=== PATIENT | male | born 1975 | race Caucasian/White ===

== ENCOUNTER 2018-07-02 19:08 | Emergency (ER) | payer OTHER ==
--- NOTE | 2018-07-02 20:49 | ER Document Report ---
ED Medical Screen (RME) - General Chief Complaint: Suicidal Ideation Stated Complaint: PSYCH PROBLEM Time Seen by Provider: 07/02/18 20:17 Notes: 43-year-old male to the emergency department chief complaint of suicidal ideation and major depression. Patient was admitted when he was 18 years of age after a suicide attempt by pills. He survived. Was placed on Effexor. [place] better finish the prescription and never was seen again. He has struggled with depression for the better of last 22 years. Patient is . Has 2 children. A few weeks ago he was in [place] where he had a major depressive episode. States that he walked around and was looking for a place to jump off a bridge or walk in front of a car. His has been concerned about him. Today he began to have severe suicidal ideation and have thoughts of wanting to harm himself. Was brought here for further evaluation. When asked what his plan of action was today he states that he had several plans but did not want to talk about them at this time. Did have trauma as a child but did not want to talk about it today. I have greeted and performed a rapid initial assessment of this patient. A comprehensive ED assessment and evaluation of the patient, analysis of test results and completion of the medical decision making process will be conducted by additional ED providers. TRAVEL OUTSIDE OF THE [place] IN LAST 30 DAYS: No - Related Data Allergies/Adverse Reactions: No Known Allergies Allergy (Unverified 07/02/18 19:12) Past Medical History - Social History Frequency of alcohol use: None Drug Abuse: None Renal/ Medical History: Denies: Hx Peritoneal Dialysis Psychiatric Medical History: Reports: Hx Depression Physical Exam - Vital signs Vitals: Temp Pulse Resp BP Pulse Ox 99.2 F 112 H 16 154/112 H 94 07/02/18 19:30 07/02/18 19:30 07/02/18 19:30 07/02/18 19:30 07/02/18 19:30 Course - Vital Signs Vital signs: Temp Pulse Resp BP Pulse Ox 99.2 F 112 H 16 154/112 H 94 07/02/18 19:30 07/02/18 19:30 07/02/18 19:30 07/02/18 19:30 07/02/18 19:30
--- NOTE | 2018-07-02 21:37 | ER Document Report ---
ED Psych Disorder / Suicide - General Chief Complaint: Suicidal Ideation Stated Complaint: PSYCH PROBLEM Time Seen by Provider: 07/02/18 21:37 Primary Care Provider: SHARATH BENTON DO [Primary Care Provider] - Follow up as needed Mode of Arrival: Ambulatory Information source: Patient Notes: HISTORY OF PRESENT ILLNESS: Patient is a 43-year-old male with a past medical history of chronic depression who presents with worsening depression with suicidal thoughts currently taking venlafaxine and Wellbutrin. Onset: Chronic Provocation: None Quality: Depression Radiation: None Severity: Moderate to severe Timing: Constant SI/HI: Yes, passive without definite plan Hallucinations: No Current therapist: No Current treatment: Venlafaxine, Wellbutrin REVIEW OF SYSTEMS: CONSTITUTIONAL : Denies fever or chills, no sweats. Denies recent illness. EENT: Denies eye, ear, throat, or mouth pain or symptoms. Denies nasal or sinus congestion. CARDIOVASCULAR: Denies chest pain. RESPIRATORY: Denies cough, cold, or chest congestion. Denies shortness of breath, difficulty breathing, or wheezing. GASTROINTESTINAL: Denies abdominal pain. Denies nausea, vomiting, or diarrhea. Denies constipation. GENITOURINARY: Denies difficulty urinating, painful urination, burning, frequency, or blood in urine. FEMALE GENITOURINARY: Denies vaginal bleeding, abnormal or irregular periods. Last menstrual period MUSCULOSKELETAL: Denies neck or back pain or joint pain or swelling. SKIN: Denies rash or skin lesions. HEMATOLOGIC : Denies easy bruising or bleeding. LYMPHATIC: Denies swollen, enlarged glands. NEUROLOGICAL: Denies altered mental status or loss of consciousness. Denies headache. Denies weakness or paralysis or loss of use of either side. Denies problems with gait or speech. Denies sensory or motor loss. PSYCHIATRIC: Positive for suicidal thoughts, denies homicidal thoughts. Positive for chronic depression. All other systems reviewed and negative. PHYSICAL EXAMINATION: GENERAL: Depressed-appearing, well-nourished and in no acute distress. HEAD: Atraumatic, normocephalic. No scalp deformity, depression, or crepitance. EYES: Pupils are 3 mm and equal/round/reactive to light, extraocular movements intact, sclera anicteric, conjunctiva are normal. ENT: Nares patent bilaterally, oropharynx clear without exudates or palatal petechia. Moist mucous membranes. No tonsil hypertrophy. NECK: Normal range of motion, supple without lymphadenopathy. LUNGS: Breath sounds present, equal, and clear to auscultation bilaterally. No wheezes, rales, or rhonchi. HEART: Regular rate and rhythm without murmurs, rubs, or gallops. 2+ peripheral pulses. Normal capillary refill. ABDOMEN: Soft, nontender, nondistended. Normoactive bowel sounds. No guarding, no rebound. No masses appreciated. BACK: Normal contour, no midline tenderness. Rectal exam deferred. PELVC: Deferred. EXTREMITIES: Normal range of motion, no pitting or edema. No cyanosis. NEUROLOGICAL: No focal neurological deficits. Moves all extremities spontaneously and on command. PSYCH: Depressed mood, normal affect. Positive for suicidal thoughts. No hallucinations. SKIN: Warm, dry, normal turgor, no rashes or lesions noted. ASSESSMENT AND PLAN: This patient is a 43-year-old male who presents with suicidal thoughts secondary to chronic depression without a definite plan. 1. Will obtain medical clearance and will seek psychiatric evaluation in the morning. 2. Will consider IVC if the patient decides to leave. TRAVEL OUTSIDE OF THE [place] IN LAST 30 DAYS: No - Related Data Allergies/Adverse Reactions: No Known Allergies Allergy (Unverified 07/02/18 19:12) Past Medical History - General Information source: Patient, Relative - Social History Smoking Status: Never Smoker Chew tobacco use (# tins/day): No Frequency of alcohol use: None Drug Abuse: None Lives with: Family Family History: Reviewed & Not Pertinent Patient has suicidal ideation: Yes Patient has homicidal ideation: No - Past Medical History Cardiac Medical History: Reports: None Pulmonary Medical History: Reports: None EENT Medical History: Reports: None Neurological Medical History: Reports: None Endocrine Medical History: Reports: None Renal/ Medical History: Reports: None. Denies: Hx Peritoneal Dialysis Malignancy Medical History: Reports None GI Medical History: Reports: None Musculoskeletal Medical History: Reports None Skin Medical History: Reports None Psychiatric Medical History: Reports: Hx Depression Traumatic Medical History: Reports: None Infectious Medical History: Reports: None Surgical Hx: Negative Past Surgical History: Reports: None - Immunizations Immunizations up to date: Yes Hx Diphtheria, Pertussis, Tetanus Vaccination: Yes History of Influenza Vaccine for 02/2017 - 07/2017 Season: Unknown Physical Exam - Vital signs Vitals: Temp Pulse Resp BP Pulse Ox 99.2 F 112 H 16 154/112 H 94 07/02/18 19:30 07/02/18 19:30 07/02/18 19:30 07/02/18 19:30 07/02/18 19:30 Course - Re-evaluation Re-evalutation: 07/03/18 03:13 Patient is medically cleared. Will await psychiatric evaluation in the morning. - Vital Signs Vital signs: Temp Pulse Resp BP Pulse Ox 98.2 F 100 18 159/98 H 95 07/02/18 23:25 07/02/18 23:25 07/02/18 23:25 07/02/18 23:25 07/02/18 23:25 - Laboratory Result Diagrams: 07/02/18 23:35 07/02/18 23:35 Laboratory results interpreted by me: 07/02/18 07/02/18 22:05 23:35 Glucose 191 H ALT 93 H Urine Ketones TRACE H Salicylates < 1.0 L Acetaminophen < 10 L - EKG Interpretation by Ak EKG shows normal: Sinus rhythm Rate: Normal Rhythm: NSR [place]/QRS: No: Right axis deviation, Left axis deviation, RBBB, LBBB, IVCD, LAHB/LAFB, LPHB/LPFB, Bifasicular block Voltage: No: Increased voltage, Consistant with LVH, Decreased voltage, Throughout, Limb leads P Waves: No: TRINH, LAE, Absent, AV Dissociation, Other Heart block present: No: 1st Degree, Mobitz 1, Mobitz 2, CHB (3rd degree block) When compared to previous EKG there are: Previous EKG unavailable Discharge - Discharge Clinical Impression: Chronic depression, Suicidal thoughts Condition: Good Disposition: PSYCH HOSP/UNIT Referrals: SHARATH BENTON DO [Primary Care Provider] - Follow up as needed
[2018-07-02 22:18] LABS: APPEARANCE,URINE SLIGHTLY-CLOUDY; BILIRUBIN,URINE NEGATIVE (NEGATIVE); COLOR,URINE YELLOW; GLUCOSE, URINE NEGATIVE (NEGATIVE); KETONES,URINE TRACE mg/dL (NEGATIVE); LEUKOCYTE ESTERASE,URINE NEGATIVE (NEGATIVE); NITRITE,URINE NEGATIVE (NEGATIVE); PROTEIN,URINE NEGATIVE (NEGATIVE); URINE SPECIFIC GRAVITY 1.024; UROBILINOGEN,URINE NEGATIVE mg/dL (<2.0)
[2018-07-02 22:53] LABS: URINE AMPHETAMINES SCREEN NEGATIVE; URINE BARBITURATES SCREEN NEGATIVE; URINE BENZODIAZEPINES SCREEN NEGATIVE; URINE COCAINE SCREEN NEGATIVE; URINE MARIJUANA (THC) SCREEN NEGATIVE; URINE METHADONE SCREEN NEGATIVE; URINE PHENCYCLIDINE SCREEN NEGATIVE
[2018-07-02 23:53] LABS: ABSOLUTE BASOPHILS # (AUTO) 0.1 10^3/uL (0.0-0.2); ABSOLUTE EOSINOPHILS # (AUTO) 0.2 10^3/uL (0.0-0.6); ABSOLUTE LYMPHOCYTES (AUTO) 2.3 10^3/uL (0.5-4.7); ABSOLUTE MONOCYTES (AUTO) 0.7 10^3/uL (0.1-1.4); ABSOLUTE NEUT (AUTO) 6.2 10^3/uL (1.7-8.2); BASOPHILS % (AUTO) 0.9 % (0-2); HEMATOCRIT 43.7 % (37.9-51.0); HEMOGLOBIN 15.1 g/dL (13.5-17.0); LYMPHOCYTES % (AUTO) 24.6 % (13-45); MEAN CORPUSCULAR HEMOGLOBIN 30.5 pg (27.0-33.4); MEAN CORPUSCULAR HGB CONC 34.6 g/dL (32.0-36.0); MEAN CORPUSCULAR VOLUME 88 fl (80-97); MONOCYTES % (AUTO) 7.1 % (3-13); PLATELET COUNT 217 10^3/uL (150-450); RED BLOOD COUNT 4.96 10^6/uL (4.35-5.55); RED CELL DISTRIBUTION WIDTH 13.5 % (11.5-14.0); SEGMENTED NEUTROPHILS % (AUTO) 65.4 % (42-78); TOTAL CELLS COUNTED % (AUTO) 100 %; WHITE BLOOD COUNT 9.5 10^3/uL (4.0-10.5)
[2018-07-03 00:03] LABS: ALANINE AMINOTRANSFERASE 93 U/L (21-72); ALBUMIN 4.5 g/dL (3.5-5.0); ALKALINE PHOSPHATASE 76 U/L (38-126); ANION GAP 10 (5-19); ASPARTATE AMINO TRANSFERASE 52 U/L (17-59); BILIRUBIN,DIRECT 0.1 mg/dL (0.0-0.4); BILIRUBIN,TOTAL 0.8 mg/dL (0.2-1.3); BLOOD UREA NITROGEN 10 mg/dL (7-20); CALCIUM 9.3 mg/dL (8.4-10.2); CARBON DIOXIDE 29 mmol/L (22-30); CHLORIDE 102 mmol/L (98-107); GLUCOSE 191 mg/dL (75-110); POTASSIUM 4.1 mmol/L (3.6-5.0); SODIUM 140.5 mmol/L (137-145); TOTAL PROTEIN 6.8 g/dL (6.3-8.2)
[2018-07-03 00:05] LABS: ACETAMINOPHEN < 10 ug/mL (10-30); ALCOHOL < 10 mg/dL (NONE DETECTED); SALICYLATE < 1.0 mg/dL (2.0-20.0)
--- NOTE | 2018-07-03 09:49 | ER Document Report ---
Doctor's Note Notes: 07/03/18 09:46 Vitals reviewed. Nursing notes reviewed. Patient has a very flat affect and no eye contact. He expresses that he has been lying and manipulative to his family to find his depression and suicidal thoughts for years. He states that he until yesterday did not wish to get help he just wish to . He currently states he is open to getting help. He denies feeling actively suicidal currently but does state yesterday he would have killed himself if the opportunity have presented itself. Plan to work on inpatient psychiatric admission for further psychiatric care at a another facility.
[2018-07-03 15:39] VITALS: BP 150/94
--- NOTE | 2018-07-03 22:51 | EKG REPORT ---
SEVERITY:- NORMAL ECG - SINUS RHYTHM : Confirmed by: Katiana Olivas 03-Jul-2018 22:50:43
--- NOTE | 2018-07-07 10:47 | PSYCHOLOGICAL NOTE ---
Psych Note - Psych Note Date seen by psych provider: 07/03/18 Time seen by psych provider: 09:10 Psych Note: Reason for Consult: suicidal ideation Patient is a 43-year-old male with a past medical history of chronic depression who presents with worsening depression with suicidal thoughts currently taking venlafaxine and Wellbutrin. Patient reports that he came to [facility] ED with his because he has been feeling depressed and had been hiding it for years. He discloses that he moved here from [place] about 5 years ago and has been taking Effexor 150mg daily and Wellbutrin 300mg daily and thinks it has been working. He reports that he became overwhelmed the other day and walked out and just walked around for hours. He confirms he has had a previous suicide attempt when he was 18 years old by overdosing on sleeping pills. He continued to report that in December his plan was to write out the storm in the hope of being killed but then when his wanted to stay he could not justify putting her in danger so went with her. He reports that he had thoughts of either going to a gun range and firing a few shots and turning it around on him however was not interested in making a "mass." He confirms he does have a shotgun and at the home. He states that he recently tied a rope into a noose because he was hoping that would be more painless but thought out further that he would sit up on a tree branch take sleeping pills like last time when he fell asleep he would fall off the tree branch with a noose around his neck. Patient's discloses that the patient has a history of depression and attempted to kill himself when he was 18 years old. She reports that he fakes happiness a lot and unfortunately the never seems to be a real trigger for him. She reports that she thinks to work is a possible trigger. She reports that the patient is a loving father giving an wonderful man that just needs help. She discloses that in 2012 the patient's brother committed suicide; He was living with the patient and his family during that time. Patient is alert and orientated to person, place, time and circumstance. Mood is dysphoric with flat and tearful affect. Patient endorses suicidal ideation denies homicidal ideation. Delusions are absent behaviors congruent with an intact reality based presentation i.e. organized and linear thought process. Eye contact is poor. Conversational speech is within normal rate, tone and prosody. Intellectual abilities appear to be within the average range. Attention and concentration are fair. Insight, judgment, impulse control are fair. No medication recommendations at this time 311 (F32.9) unspecified depressive disorder Impression\\plan: Patient is recommended for IVC. Patient endorses suicidal ideation and while patient does disclose multiple plans patient is very flat with a family history of suicide (patient's brother committed suicide in 2012 while living with the patient). It is also concerning the patient has highly developed plans. Clinician notes patient affect is flat while being tearful. Patient was accepted to [facility]; transportation was requested. Dr. Diana was consulted and the care management of this patient; attending physicians agreement with recommendations and disposition.
== END 2018-07-03 16:22 ==
LOC: ER 19:08
DX: F32.9 Major depressive disorder, single episode, unspecified (principal); Z79.899 Other long term (current) drug therapy; R45.851 Suicidal ideations
CPT/HCPCS: 36415; 80053; 80307; 81001; 82962; 85025; 93005; 93010; 99285